=== PATIENT | male | born 1980 | race Caucasian/White ===

== ENCOUNTER → 2019-06-02 13:03 | Outpatient (BNVA) | payer OTHER, SELFPAY | PROVIDERS: Visit Provider Nurse Practitioner Family | DX: J10.1 Influenza due to other identified influenza virus with other respiratory manifestations (principal); R50.9 Fever, unspecified; J01.40 Acute pansinusitis, unspecified | CPT/HCPCS: 87804 ==

== ENCOUNTER 2021-03-12 19:23 | Observation (INO) | payer OTHER, SELFPAY ==
--- NOTE | 2021-03-12 19:30 | XRR_ITS ---
PROCEDURE INFORMATION: Exam: XR Chest Exam date and time: 03/12/2021 7:30 PM Age: 41 years old Clinical indication: Chest wall pain; Additional info: Cp TECHNIQUE: Imaging protocol: XR of the chest. Views: 1 view. COMPARISON: No relevant prior studies available. FINDINGS: Lungs: Unremarkable. No consolidation. Pleural spaces: Unremarkable. No pleural effusion. No pneumothorax. Heart/Mediastinum: Unremarkable. No cardiomegaly. Bones/joints: Unremarkable. XR/XR chest 1V portable [id number] IMPRESSION: No acute findings. Radiation Dose CTDIVOL = (mGy): DLP = (mGy-cm)
--- NOTE | 2021-03-12 19:30 | ECG_ITS ---
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 Measurements Intervals [place] Rate: 130 P: IA: QRS: 47 QRSD: 94 T: 43 QT: 311 QTc: 458 Interpretive Statements ATRIAL FIBRILLATION WITH RAPID VENTRICULAR RESPONSE MODERATE ST DEPRESSION [0.05+ mV ST DEPRESSION] No previous ECG available for comparison Electronically Signed On 03-13-2021 9:59:17 SYRUP MIXER by Day Paez M.D. [id number]
[2021-03-12 19:33] VITALS: BP 135/103; PULSE 121; RESP 18; TEMP 37.1; O2SAT 98; BMI 40.2
--- NOTE | 2021-03-12 20:10 | ED_ITS ---
HPI - Chest Pain General: Chief Complaint: Chest Pain Stated Complaint: Chest Pain\Arm Numb Time Seen by Provider: 03/12/21 19:58 Source: patient Mode of arrival: ambulatory Limitations: no limitations History of Present Illness: HPI narrative: 41-year-old male states that roughly 1 hour ago he started having some palpitations in the center of his chest. He states that he had been on a pulse ox at home his heart rate was running in the 140s. Here he is in A. fib with RVR running in the 130s to 140s he denies any history of A. fib. He denies any chest pain. He states he was on a very recent long flight across the country a week ago. Denies any history of blood clots denies any worsening improving factors. Associated symptoms: Reports palpitations; Deny abdominal pain, dyspnea, fever(s), nausea or vomiting Review of Systems Const: Denies: fever(s), chills, body aches or change in appetite Eyes: Denies: blurry vision or eye discomfort ENMT: Denies: throat pain or dental pain Card: Reports: palpitations Resp: Denies: dyspnea GI: Denies: abdominal pain, nausea, vomiting or diarrhea : Denies: dysuria Musc: Denies: neck pain or back pain Skin/Breast: Denies: rash Neuro: Denies: headache(s) Psych: Denies: depression Santana/Lymph: Denies: easy bruising All/Imm: Denies: urticaria Physical Exam Const: COMMON NORMALS: no acute distress, patient oriented x3 and healthy appearing HENMT: COMMON NORMALS: normocephalic and atraumatic HEAD & SCALP: normocephalic and atraumatic Eye: COMMON NORMALS: Equal, round and reactive pupils present and EOMs intact bilaterally PUPIL: Yes Equal, round and reactive pupils present Neck/C-Spine: COMMON NORMALS: full ROM and supple Chest: COMMONS NORMALS: normal inspection of the chest and normal palpation of entire chest wall Resp: COMMON NORMALS: normal respiratory effort, No retractions, No use of accessory muscles and clear to auscultation bilaterally AUSCULTATION: clear to auscultation bilaterally Cardio: COMMON NORMALS: No murmurs present (Cardio) RATE: tachycardic RHYTHM: abnormal rhythm irregularly irregular GI: COMMON NORMALS: Normal to inspection, nondistended, normoactive bowel sounds present, Soft to palpation, non-tender and no masses PALPATION: Yes Soft to palpation Extremity: COMMON NORMALS: normal to inspection and full ROM Neuro: COMMON NORMALS: patient oriented x3, moves all extremities and no focal motor deficits Psych: COMMON NORMALS: mental status grossly normal, Normal thought process present and cooperative THOUGHT PROCESS: Normal thought process present Skin: COMMON NORMALS: no rashes or lesions noted and no wounds GENERAL SKIN EXAM: no rashes or lesions noted Course Vital Signs: Vital signs: Vital Signs Temperature 98.7 F 03/12/21 19:33 Pulse Rate 113 H 03/12/21 20:20 Respiratory Rate 16 03/12/21 20:20 Blood Pressure 128/82 03/12/21 20:20 Pulse Oximetry 97 03/12/21 20:20 MDM - Chest Pain MDM Narrative: Medical decision making narrative: Patient presents with new onset A. fib with RVR no history of A. fib in the past patient's initial troponin here is negative D-dimer is negative as well with no signs of pulmonary embolism I spoke to the hospitalist patient started on a Cardizem drip will admit to the cardiac stepdown unit. Lab Data: Labs: Lab Results 03/12/21 03/12/21 03/12/21 20:03 20:03 20:03 WBC 5.8 10^3/uL 10^3/ uL (4.0-10.0) RBC 5.22 10^6/uL 10^6 /uL (4.1-5.3) Hgb 16.1 g/dL g/dL (11.7-16.6) Hct 45.5 % % (42.0-52.0) MCV 87.2 fl fl (80-94) MCH 30.8 pg pg (28.0-34.0) MCHC 35.4 g/dL g/dL (30.0-36.0) RDW 11.6 % L % (12.1-15.1) Plt Count 232 10^3/cmm 10^3 /cmm (130-400) MPV 10.4 fL fL (7.4-10.4) Neut % (Auto) 58.5 % % Lymph % (Auto) 29.8 % % Johnston % (Auto) 8.3 % % Eos % (Auto) 2.6 % % Baso % (Auto) 0.5 % % Neut # (Auto) 3.40 10^3/uL 10^3 /uL (1.8-7.7) Lymph # (Auto) 1.7 10^3/uL 10^3/ uL (0.8-4.8) Johnston # (Auto) 0.5 10^3/uL 10^3/ uL (0.2-0.9) Eos # (Auto) 0.2 10^3/uL 10^3/ uL (0.0-0.8) Baso # (Auto) 0.0 10^3/uL 10^3/ uL (0.0-0.1) Nucleated RBC % (a uto) 0 % % Nucleated RBCs # 0.0 /100WBC /100W BC D-Dimer Sodium 146 mmol/L H mmol /L (136-145) Potassium 3.6 mmol/L mmol/L (3.5-5.1) Chloride 111 mmol/L H mmol /L (98-107) Carbon Dioxide 25 mmol/L mmol/L (22-29) Anion Gap 13.6 (5-19) BUN 9 mg/dL mg/dL (6-20) Creatinine 0.6 mg/dL L mg/dL (0.7-1.2) GFR Calculation 147.8 mL/min H mL /min (90-130) Glucose 120 mg/dL H mg/dL (65-115) Calculated Osmolal ity 302 mOsm/kg H mOs m/kg (285-295) Calcium 9.5 mg/dL mg/dL (8.5-10.5) Total Bilirubin 0.3 mg/dL mg/dL (0.15-1.2) AST 32 U/L U/L (0-40) ALT 41 U/L U/L (0-41) Alkaline Phosphata se 86 IU/L IU/L (40-130) Troponin T Baselin e 7 ng/L ng/L (0-15) Total Protein 6.7 g/dL g/dL (6.6-8.7) Albumin 4.4 g/dL g/dL (3.5-5.2) Globulin 2.3 g/dL g/dL (1.3-4.6) 03/12/21 20:03 WBC RBC Hgb Hct MCV MCH MCHC RDW Plt Count MPV Neut % (Auto) Lymph % (Auto) Johnston % (Auto) Eos % (Auto) Baso % (Auto) Neut # (Auto) Lymph # (Auto) Johnston # (Auto) Eos # (Auto) Baso # (Auto) Nucleated RBC % (a uto) Nucleated RBCs # D-Dimer <= 0.27 ug/mIFEU ug/mIFEU (0-0.59) Sodium Potassium Chloride Carbon Dioxide Anion Gap BUN Creatinine GFR Calculation Glucose Calculated Osmolal ity Calcium Total Bilirubin AST ALT Alkaline Phosphata se Troponin T Baselin e Total Protein Albumin Globulin Imaging Data^: CXR: Attestation: I personally reviewed and interpreted this imaging study as follows : My impression: no acute abnormality EKG Data^: EKG 1: Attestation: I personally reviewed and interpreted this EKG as follows: EKG interpretation date: 03/12/21 EKG interpretation time: 19:32 Interpretation: afib with rvr hr [address] or t wave abnormalities qrs 94 qtc 388 Coding Level of Care Code ED [employer] Safety Program Coordinator for Chg Fwd Exam Comprehensive
[2021-03-12 20:16] LABS: Basophils % 0.5 %; Eosinophils # 0.2 10^3/uL (0.0-0.8); Eosinophils % 2.6 %; Hematocrit 45.5 % (42.0-52.0); Hemoglobin 16.1 g/dL (11.7-16.6); Lymphocytes # 1.7 10^3/uL (0.8-4.8); Lymphocytes % 29.8 %; Mean Corpuscular HGB Conc 35.4 g/dL (30.0-36.0); Mean Corpuscular Hemoglobin 30.8 pg (28.0-34.0); Mean Corpuscular Volume 87.2 fl (80-94); Mean Platelet Volume 10.4 fL (7.4-10.4); Monocytes # 0.5 10^3/uL (0.2-0.9); Monocytes % 8.3 %; Neutrophils % 58.5 %; Nucleated Red Blood Cells % 0 %; Platelet Count 232 10^3/cmm (130-400); Red Blood Count 5.22 10^6/uL (4.1-5.3); Red Cell Distribution Width 11.6 % (12.1-15.1); White Blood Count 5.8 10^3/uL (4.0-10.0)
[2021-03-12] MEDS: sodium chloride 0.9% 1,000 ML 999 ML IV (20:16)
[2021-03-12 20:20] VITALS: BP 128/82; PULSE 113; RESP 16; O2SAT 97
[2021-03-12 20:30] LABS: D Dimer <= 0.27 ug/mIFEU (0-0.59)
[2021-03-12 20:32] LABS: Anion Gap 13.6 (5-19); Blood Urea Nitrogen 9 mg/dL (6-20); Carbon Dioxide 25 mmol/L (22-29); Chloride 111 mmol/L (98-107); Potassium 3.6 mmol/L (3.5-5.1); Sodium 146 mmol/L (136-145)
[2021-03-12 20:33] LABS: Alanine Aminotransferase 41 U/L (0-41); Albumin Level 4.4 g/dL (3.5-5.2); Alkaline Phosphatase 86 IU/L (40-130); Aspartate Amino Transferase 32 U/L (0-40); Calcium 9.5 mg/dL (8.5-10.5); Globulin 2.3 g/dL (1.3-4.6); Glomerular Filtration Rate 147.8 mL/min (90-130); Glucose 120 mg/dL (65-115); Osmolality Calculated 302 mOsm/kg (285-295); Total Bilirubin 0.3 mg/dL (0.15-1.2); Total Protein 6.7 g/dL (6.6-8.7); Troponin(5th) Baseline 7 ng/L (0-15)
[2021-03-12 20:35] LABS: Creatinine Clr Calc Pharmacy 164.8669
[2021-03-12] MEDS: aspirin 81 mg Chew Tablet 324 MG PO (20:35)
[2021-03-12 21:50] VITALS: BP 114/96; PULSE 100; RESP 20; O2SAT 97
[2021-03-12 21:53] LABS: Add Urine Microscopic? NO; Charge for UA Resulting for Rev
[2021-03-12 22:00] LABS: Bilirubin Urine Neg (Negative); Blood Urine Neg (Negative); Glucose Urine UA Norm (Normal); Ketones Urine Negative (Negative); Leukocyte Esterase Urine Negative (Negative); Nitrate Urine Negative (Negative); Protein Urine Neg (Negative); Urine Appearance Clear (CLEAR); Urine Color Colorless (Yellow); Urobilinogen Urine Norm (Negative); pH Urine 7 (5-7)
[2021-03-12 22:31] LABS: Troponin 5 2HR 11.85 ng/L (0-15); Troponin 5 2HR Delta 4.85 ABS# (0-10)
[2021-03-13 00:02] VITALS: BP 114/96; PULSE 65; RESP 17; O2SAT 96
--- NOTE | 2021-03-13 01:30 | ECG_ITS ---
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 Measurements Intervals [place] Rate: 82 P: MI: QRS: 56 QRSD: 94 T: 61 QT: 382 QTc: 449 Interpretive Statements ATRIAL FIBRILLATION ABNORMAL RHYTHM ECG Compared to ECG 03/12/2021 19:32:02 ST (T wave) deviation no longer present Electronically Signed On 03-13-2021 23:52:41 PATIENT'S LIBRARIAN by Codie Hanna M.D. [id number]
--- NOTE | 2021-03-13 01:47 | CTR_ITS ---
PROCEDURE INFORMATION: Exam: CTA Chest With Contrast Exam date and time: 03/13/2021 1:47 AM Age: 41 years old Clinical indication: Patient HX: New onset of afib with rvr. Chest pain. Recent extended transatlantic flight. ; Additional info: Evalute for pe, recent transatlantic flight, new onset a fib, evaluate for TECHNIQUE: Imaging protocol: Computed tomographic angiography of the chest with contrast. 3D rendering (Not supervised by radiologist): MIP and/or 3D reconstructed images were created by the technologist. Radiation optimization: All CT scans at this facility use at least one of these dose optimization techniques: automated exposure control; mA and/or kV adjustment per patient size (includes targeted exams where dose is matched to clinical indication); or iterative reconstruction. Contrast material: OMNI 350; Contrast volume: 62 ml; Contrast route: INTRAVENOUS (IV); COMPARISON: CR (CHEST, ) 03/12/2021 8:51 PM RADIATION DOSE METRICS: Total DLP (mGy-cm): 545.83 FINDINGS: Pulmonary arteries: No pulmonary embolism. Aorta: Unremarkable. No aortic aneurysm. No aortic dissection. Lungs: Unremarkable. No consolidation. No masses. Pleural spaces: Unremarkable. No pneumothorax. No pleural effusion. Heart: Unremarkable. No cardiomegaly. No pericardial effusion. Lymph nodes: Unremarkable. No enlarged lymph nodes. Bones/joints: Unremarkable. No acute fracture. Soft tissues: Unremarkable. CT/CT angio chest PE protcl [id number] IMPRESSION: 1. No cause for acute pain is identified. 2. No pulmonary embolism. Radiation Dose CTDIVOL = (mGy): DLP = 545.83 (mGy-cm)
--- NOTE | 2021-03-13 01:47 | USCV_ITS ---
Yung Pascual Age: 41 Gender: M : 1980 Exam Date: 03/13/2021 08:13 Ordering Phys: Erika Field MD Technologist: Exam Location: [facility] [place] Indication: Tachycardia, atrial fibrillation BP: 130 / 80 HR: 94 Rhythm: Sinus Technical Quality: Adequate MEASUREMENTS (Male / Female) Normal Values 2D ECHO LV Diastolic Diameter PLAX 3.4 cm 4.2 - 5.9 / 3.9 - 5.3 cm LV Systolic Diameter PLAX 2.0 cm IVS Diastolic Thickness 1.1 cm 0.6 - 1.0 / 0.6 - 0.9 cm IVS Systolic Thickness 1.7 cm LVPW Diastolic Thickness 1.2 cm 0.6 - 1.0 / 0.6 - 0.9 cm LVPW Systolic Thickness 1.5 cm LVOT Diameter 2.0 cm LV Ejection Fraction 2D Teich 72.9 % LV Ejection Fraction MOD 2C 43.3 % LV Ejection Fraction 2C AL 43.0 % LA Diameter 3.5 cm LA Width 4.0 cm LA Height 4.6 cm RA Width 3.1 cm RA Height 4.6 cm M-MODE LV Diastolic Diameter MM 5.3 cm 4.2 - 5.9 / 3.9 - 5.3 cm LV Systolic Diameter MM 3.6 cm LV Ejection Fraction MM Teich 59.4 % IVS Diastolic Thickness MM 1.2 cm 0.6 - 1.0 / 0.6 - 0.9 cm IVS Systolic Thickness MM 1.9 cm LVPW Diastolic Thickness MM 1.3 cm 0.6 - 1.0 / 0.6 - 0.9 cm LVPW Systolic Thickness MM 1.9 cm RV Diastolic Diameter MM 1.0 cm Aortic Annulus Diameter 4.0 cm LA Ao Ratio MM 0.9 MV E Point Septal Separation 1.1 cm DOPPLER AV Peak Velocity 129.0 cm/s LVOT Peak Velocity 78.0 cm/s AV Area Cont Eq vti 1.9 cm squared AV Area Cont Eq pk 2.0 cm squared MV Area PHT 5.0 cm squared Mitral E to A Ratio 1.1 MV E' Velocity 52.5 cm/s Mitral E to MV E' Ratio 7.7 Mitral E to LV E' Lateral Ratio 7.2 Mitral E to LV E' Septal Ratio 8.4 TR Peak Velocity 165.8 cm/s TR Peak Gradient 11.0 mmHg FINDINGS Left Ventricle Normal left ventricular size, systolic function and wall thickness, with no regional wall motion abnormalities. Left ventricular ejection fraction is estimated at 60-65 %. Normal diastolic function. Right Ventricle Normal right ventricular size and systolic function. Right ventricular systolic pressure 16 mmHg. Right Atrium Normal right atrial size. Right atrial pressure estimated at 3 mmHg. Left Atrium Normal left atrial size. Mitral Valve Structurally normal mitral valve. No mitral valve stenosis. No mitral valve regurgitation. Aortic Valve Structurally normal trileaflet aortic valve. No aortic valve stenosis. No aortic valve regurgitation. Tricuspid Valve Tricuspid valve not well visualized. Trace tricuspid valve regurgitation. Pulmonic Valve Pulmonic valve not well visualized. No pulmonary valve stenosis. No pulmonary valve regurgitation. Pericardium No pericardial effusion. Aorta Normal-sized inferior vena cava. Normal-sized aortic root. CONCLUSIONS 1. Normal left ventricular size, systolic function and wall thickness, with no regional wall motion abnormalities. Left ventricular ejection fraction is estimated at 60-65 %. Normal diastolic function. 2. Normal right ventricular size and systolic function. 3. No significant valvular abnormality. 4. Normal pulmonary artery pressure. 5. No prior similar studies to compare. Day Paez MD (Electronically Signed) Final Date: 13 March 2021 12:33 S
[2021-03-13 02:03] VITALS: BP 129/75; PULSE 59; RESP 16; O2SAT 97
[2021-03-13] MEDS: enoxaparin 40 mg/0.4 mL Syringe SUBCUT (02:08)
[2021-03-13] MEDS: dilTIAZem 30 mg Tablet PO ×4 (02:20→19:40)
[2021-03-13] MEDS: iohexol 350 mg/mL 100 mL Btl IV (02:36)
--- NOTE | 2021-03-13 02:57 | PM.HP ---
Providers/Chief Complaint Admitting Physician: Erika Field MD Chief Complaint: Chest Pain\Arm Numb History of Present Illness Yung Pascual is a 41 year old male without reported significant past medical history who presented to the emergency room with chief complaints of chest palpitations that started at 6 PM this evening. Patient was reportedly at rest and had just eaten lots of candy following which he started experiencing chest flutter/palpitations. He has experienced similar flutter in the past, however episodes have been self resolving. When the sensation did not resolve he presented to the emergency room. States that while on transit to the ER he was pretty anxious and felt short of breath in this context. He has been saturating 97% on room air since arrival. No past history of A. fib or a flutter noted. In the ER patient noted to have A. fib with RVR with heart rate 140 to 150 bpm. He denies any lower extremity swelling. Patient has a history of recent international travel, travel back from [place], [facility] 48 hours ago. Transatlantic flight lasting greater than 10 hours. No past history of DVT or PE. D-dimer screen today is negative. He was tested for pretravel Covid PCR on Thursday and was negative for the same. Denies any complaints of cough, chest pain, dyspnea, palpitations. No recent viral URI type illness. No known thyroid issues. His diastolic blood pressure reportedly runs greater than 90. He is not currently on any medications for any reason. No recent history of binge alcohol drinking. Drinks socially 1-2 drinks per day, last drink was on . No history of IV recreational drug use. No past history of valvular abnormalities or rheumatic fever. He has been started on a Cardizem infusion at this time, at the time of my assessment patient continues to be in A. fib but now controlled on 10 mg/h drip between 70 to 80 bpm. No fever. He is currently vaccinated for COVID-19 with 2 doses mRNA vaccine series and had his booster approximately 1-1/2 months ago. Chest x-ray today does not show any infiltrates. Review of Systems General: Reports: 10 or more systems reviewed and unremarkable except in HPI and below Const: Denies: fever(s), chills or body aches Eyes: Denies: change in vision, blurry vision or photophobia ENMT: Reports: hoarseness; Denies: throat pain, enlarged tonsils, odynophagia or nasal congestion Card: Denies: chest pain, palpitations, irregular heart rhythm, edema, swelling of feet/ankles, lightheadedness, pre-syncope, dyspnea on exertion or orthopnea Resp: Denies: dyspnea, productive cough, non-productive cough, wheezing, stridor, pain on inspiration, change in phlegm color, hemoptysis or chest congestion GI: Denies: abdominal pain, nausea, vomiting, hematemesis, coffee ground emesis, dysphagia, heartburn, diarrhea, constipation, GI cramping, change in stool character, hematochezia or melena : Denies: flank pain, dysuria, urinary frequency, urinary urgency, urinary hesitancy or hematuria Musc: Denies: neck pain, back pain, extremity pain, joint swelling, joint warmth or deformity Neuro: Denies: headache(s), numbness in extremities, weakness in extremities, sensory changes, difficulty walking, frequent falls, dizziness, vertigo, behavioral changes, Slurred speech present or seizure-like activity Psych: Denies: anxiety, depression, suicidal ideation or homicidal ideation Endo: Denies: polyuria, polydipsia, tired all the time, cold intolerance or hot flashes Santana/Lymph: Denies: easy bruising or easy bleeding Medications/Allergies Allergies Allergy/AdvReac Type Severity Reaction Status Date / Time No Known Allergies Allergy Verified 06/02/19 13:01 Vitals/I&O/Wt Last Vital Signs Temp 98.7 F 03/12/21 19:33 Pulse 59 L 03/13/21 02:03 Resp 16 03/13/21 02:03 BP 129/75 03/13/21 02:03 Pulse Ox 97 03/13/21 02:03 03/12/21 03/12/21 03/13/21 14:59 22:59 06:59 Intake Total 43.125 / 43.125 Balance 43.125 / 43.125 Weight last 48 hrs Weight 99.79 kg Physical Exam Narrative: EXAM NARRATIVE: General: No acute distress, AO x3 HEENT: PERRLA, pupils bilaterally equal and reactive, pallors not present Chest: Normal vesicular breath sounds, no added sounds, equal good air entry bilaterally CVS: S1-S2 irregular, no murmurs, no tachycardia, no gallops, no rubs Abdomen: Soft, nontender, no organomegaly, bowel sounds present Neuro: No focal deficits, no facial deformity, AO x3, power 5/5 in all limbs Extremities: No edema clubbing or cyanosis Data : 03/12/21 20:03 03/12/21 20:03 A&P Assessment and plan (1) New onset a-fib: new onset A fib with RVR currently on cardizem infusion @ 10mg/hr Start overlap with po cardizem 30mg po q6h check TSH, urine drug screen, echocardiogram and magnesium Potassium within range no reported h/o HTN Pogvb2Brof score zero, hold off on anticoagulation Cta chest to evaluate for PE given recent long transatlantic flight lasting >10 hrs which is a potential risk factor for PE Status: Acute Attestations Medical Necessity Statement*: anticipate >2midnight admission for evaluation and management of new onset A fib Coding Level of Care Code Acute Switchboard Operator Helper for David Fwginny Diagnoses New onset a-fib I48.91
[2021-03-13 03:40] LABS: Troponin 5 6HR 10.85 ng/L (0-15); Troponin 5 6HR Delta 3.85 ng/L (0-12)
[2021-03-13 04:03] LABS: Amphetamines Screen Urine Negative (Negative); Barbiturates Screen Urine Negative (Negative); Benzodiazepines Screen Urine Negative (Negative); Cocaine Screen Urine Negative (Negative); Opiate Screen Urine Negative (Negative); PCP Screen Urine Negative (Negative); THC Screen Urine Negative (Negative)
[2021-03-13 04:05] LABS: Magnesium 2.1 mg/dL (1.7-2.3); Thyroid Stimulating Hormone 2.99 uIU/mL (0.27-4.20)
[2021-03-13 04:33] VITALS: BP 129/100; PULSE 87; RESP 19; O2SAT 95
[2021-03-13] MEDS: pantoprazole DR 40 mg Tablet PO (08:57)
--- NOTE | 2021-03-13 09:51 | USCV_ITS ---
Yung Pascual Age: 41 Gender: M : 1980 Exam Date: 03/13/2021 10:04 Ordering Phys: Brett Torres MD Technologist: Wolf Sheppard [place] [facility] [place]: EVAL FOR DVT HISTORY: Lower extremity swelling. PROCEDURES: Venous duplex imaging was performed in bilateral lower extremities. Venous duplex imaging was performed in only the left lower extremity. In addition, the posterior tibial and peroneal trunk were evaluated. Serial compression, augmentation maneuvers, and spectral Doppler flow evaluation were performed. FINDINGS: No evidence of DVT seen in any vessel visualized at this time. CONCLUSIONS No evidence of right lower extremity DVT. No evidence of left lower extremity DVT. Mark Patino MD (Electronically Signed) Final Date: 13 March 2021 16:09 S
[2021-03-13 14:30] VITALS: BP 136/101; PULSE 78; RESP 18; O2SAT 96
--- NOTE | 2021-03-13 16:02 | PM.CONSULT ---
Providers/Reason For Consult Consulting Physician/Specialty*: Dr. Paez, cardiology Reason for Consult*: New onset atrial fibrillation Attending Physician: Brett Torres MD History of Present Illness History of Present Illness Yung Pascual is a 41 year old male with no prior medical history not on any medications presented with sudden onset tachycardia and heart fluttering. He recently went for a week visit to [place] and traveled last Thursday (20 hr flight with layovers) and arrived back here on Thursday. He was feeling okay after arrival apart from being jet lagged and tired. Yesterday around 6- 6:30 PM, he felt his heart racing and heart rhythm not being right when he checked his pulse. He presented to the ER for further evaluation. He was found to be in A. fib with RVR with heart rate in 130's and BP 135/103 mm Hg. normal hemoglobin and electrolytes. Normal TSH. He was started on Cardizem drip and since then has been weaned off the Cardizem p.o. CTA chest showed no PE. Venous duplex with no DVT. Echocardiogram was done that showed normal LV function and normal left atrial size. I have been asked to assist in further management as with ambulation patient heart rate increases in 100s. Patient denies any excessive caffeine intake. Occasional episodes of fluttering in the past with caffeine intake. No sustained episodes. 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 He was tested for Covid prior to his travel. He denies any personal or family cardiac history. Review of Systems Const: Denies: fever(s), chills, change in appetite, change in weight, fatigue or malaise Eyes: Denies: change in vision or eye discharge ENMT: Denies: throat pain, swelling of lips/tongue, bleeding gums, nasal congestion or post nasal drip Card: Reports: palpitations and irregular heart rhythm; Denies: chest pain, edema, lightheadedness, syncope, dyspnea on exertion, orthopnea or leg pain with exertion Resp: Denies: dyspnea, productive cough, wheezing or hemoptysis GI: Denies: abdominal pain, nausea, vomiting, hematemesis, heartburn, diarrhea, constipation, change in bowel habits, hematochezia or melena : Denies: dysuria or hematuria Musc: Denies: back pain, extremity swelling, joint pain or muscle weakness Skin/Breast: Denies: rash, erythema, new lesions or change in hair Neuro: Denies: numbness in extremities, weakness in extremities, lack of coordination, dizziness, vertigo or confusion Psych: Denies: anxiety, depression or irritability Endo: Denies: tired all the time, cold intolerance or heat intolerance Santana/Lymph: Denies: easy bruising, easy bleeding, petechiae or purpura All/Imm: Denies: throat swelling or acute wheezing Meds/Allergies Home Medications and Allergies Home Medications Medication Instructions Recorded Confirmed Last Taken Type No Known Home Medications 03/13/21 03/13/21 Unknown History Allergies Allergy/AdvReac Type Severity Reaction Status Date / Time No Known Allergies Allergy Verified 06/02/19 13:01 Current Medications Current Medications Generic Name Dose Route Start Last Admin Trade Name Freq PRN Reason Stop Dose Admin Enoxaparin Sodium 40 mg 03/13/21 02:00 03/13/21 02:08 Enoxaparin 40 Mg/0.4 Ml Syringe SUBCUT 40 mg Q24H JESSE Administration Diltiazem HCl 125 mg/ Sodium 125 mls @ 10 mls/hr 03/12/21 21:00 03/13/21 10:33 Chloride IV Not Given .[id number] JESSE 10 MG/HR Pantoprazole Sodium 40 mg 03/13/21 09:00 03/13/21 08:[address] 40 Mg Tablet PO 40 mg DAILY JESSE Administration Vitals/I&O/Wt Last Vital Signs Temp 98.7 F 03/12/21 19:33 Pulse 78 03/13/21 14:30 Resp 18 03/13/21 14:30 BP 136/101 03/13/21 14:30 Pulse Ox 96 03/13/21 14:30 03/13/21 03/13/21 03/13/21 06:59 14:59 22:59 Intake Total 43.125 / 43.125 Output Total 600 / 600 Balance -556.875 / -556.875 Weight last 48 hrs Weight 220 lb Physical Exam Narrative: EXAM NARRATIVE: GENERAL: Obese man lying in bed in no acute distress HEENT: Pupils equal round reactive to light. No pallor or icterus. NECK: No JVD, No carotid bruit. CARDIOVASCULAR SYSTEM: S1-S2 regular. No murmur rubs or gallops. RESPIRATORY SYSTEM: Chest clear to auscultation. No wheezes rhonchi or rubs heard. No use of accessory muscles. ABDOMEN: Soft, nontender and nondistended. Normal bowel sounds present. EXTREMITIES: No cyanosis or clubbing. No edema. No signs of chronic venous insufficiency. PARLOR MAID: Patient is alert oriented ?3. No focal neurological deficits. A&P Assessment and plan (1) New onset a-fib: New onset (<48 hr ) of onset. -Option of cardioversion/rate control with Cardizem discussed with patient in detail. -Patient is reluctant to undergo electrical cardioversion and opted for chemical cardioversion. -start on Fleacinide 100 mg BID with ASA 325 mg daily ([id number]=4/9). -Depending on clinical progress may consider pill in pocket strategy. -Intermittent snoring but no other symptoms of sleep apnea. May consider overnight pulse oximetry. -follow up with me in [facility] in 1 week -EKG in 1 week. Patient was advised to keep a track of blood pressure and heart rate 2-3 times a day till his follow-up appointment. -Advised to take Cardizem 30 mg 3 times daily along with flecainide. Thank you for allowing me to participate in patient's care. Please feel free to call with questions or concerns. Status: Acute (2) Obesity: Status: Acute Qualifiers: Obesity classification: adult class 3 (BMI >= 40) Body mass index: BMI 40.0-44.9 Consult Attestations Time Spent in Patient Care: 16 - 35 minutes (>than 50% of time spent in counselling and/or direct pt care on unit). Coding Level of Care Code Acute Coremaker for Chg Fwd Diagnoses New onset a-fib I48.91 Obesity E66.9 Obesity classification: adult class 3 (BMI >= 40) Body mass index: BMI 40.0-44.9
--- NOTE | 2021-03-13 17:52 | PM.DCS ---
Discharge Providers Date of Admission: 03/13/21 12:57 Date of Discharge: March 13, 2021 Attending Provider at Admission: Erika Field MD Attending Provider at Discharge: Brett Torres MD Diagnoses at Discharge Discharge Diagnosis (1) New onset a-fib: Status: Acute (2) Obesity: Status: Acute Qualifiers: Obesity classification: adult class 3 (BMI >= 40) Body mass index: BMI 40.0-44.9 Reason for Visit Reason for Visit: Chest Pain\Arm Numb Hospital Course Hospital Course This is a 41-year-old male with no significant past medical history who presents to [facility] due to chest palpitations or shortness of breath Patient was admitted to [facility] for A. fib with RVR, treated with Cardizem drip, cardiology was consulted, managed with Cardizem and flecainide and aspirin 325. Kayode Vasc score was 0. TSH within normal limits, mag within normal limits, bilateral extremity ultrasound negative for DVT, CTA negative for pulmonary embolism, echocardiogram showed normal EF with no significant wall motion abnormalities, U tox negative. Patient was discharged home with Cardizem 30 mg 3 times daily, flecainide 100 twice daily, aspirin 325, with a follow-up with cardiology as outpatient Physical Exam Const: COMMON NORMALS: no acute distress and patient oriented x3 Resp: COMMON NORMALS: normal respiratory effort, No retractions, No use of accessory muscles and clear to auscultation bilaterally AUSCULTATION: clear to auscultation bilaterally Cardio: COMMON NORMALS: regular rate, S1 normal heart sound present and S2 normal heart sound present RATE: regular rate and tachycardic RHYTHM: abnormal rhythm HEART SOUNDS: S1 normal heart sound present and S2 normal heart sound present GI: COMMON NORMALS: Normal to inspection, nondistended, normoactive bowel sounds present, Soft to palpation and non-tender PALPATION: Yes Soft to palpation Extremity: COMMON NORMALS: no pedal edema Neuro: COMMON NORMALS: patient oriented x3 Psych: COMMON NORMALS: mental status grossly normal Discharge Data Data Completed and Pending: Completed Studies During Hospitalization Category Date Time Status CT angio chest PE protcl [id number] Rout ine Cat Scan 03/13/21 01:47 Completed XR chest 1V mahi ble [id number] Stat Exams 03/12/21 19:30 [place] [id number] Urgent Ultrasound 03/13/21 09:51 Completed CV. echo complete * [id number] Routine Ultrasound 03/13/21 01:47 Completed Labs from last 24 hours 03/13/21 03/13/21 03/12/21 03:09 03:09 22:04 WBC RBC Hgb Hct MCV MCH MCHC RDW Plt Count MPV Neut % (Auto) Lymph % (Auto) Cook % (Auto) Eos % (Auto) Baso % (Auto) Neut # (Auto) Lymph # (Auto) Cook # (Auto) Eos # (Auto) Baso # (Auto) Nucleated RBC % (a uto) Nucleated RBCs # D-Dimer Sodium Potassium Chloride Carbon Dioxide Anion Gap BUN Creatinine GFR Calculation Glucose Calculated Osmolal ity Calcium Magnesium 2.1 Total Bilirubin AST ALT Alkaline Phosphata se Troponin T Baselin e Troponin T 120 Min [place] 11.85 Delta Troponin T 4.85 Troponin T Hi Sens 6Hr 10.85 Troponin T Hi Sens 6Hr Delta 3.85 Total Protein Albumin Globulin TSH 2.99 Urine Color Urine Appearance Urine pH Ur Specific Gravit y Urine Protein Urine Glucose (UA) Urine Ketones Urine Blood Urine Nitrate Urine Bilirubin Urine Urobilinogen Ur Leukocyte Jessica ase Urine Opiates Scre en Ur Barbiturates Sc reen Ur Phencyclidine S crn Ur Amphetamines Sc reen U Benzodiazepines Scrn Urine Cocaine Scre en U Marijuana (THC) Screen 03/12/21 03/12/21 03/12/21 20:03 20:03 20:03 WBC RBC Hgb Hct MCV MCH MCHC RDW Plt Count MPV Neut % (Auto) Lymph % (Auto) Cook % (Auto) Eos % (Auto) Baso % (Auto) Neut # (Auto) Lymph # (Auto) Cook # (Auto) Eos # (Auto) Baso # (Auto) Nucleated RBC % (a uto) Nucleated RBCs # D-Dimer <= 0.27 Sodium 146 H Potassium 3.6 Chloride 111 H Carbon Dioxide 25 Anion Gap 13.6 BUN 9 Creatinine 0.6 L GFR Calculation 147.8 H Glucose 120 H Calculated Osmolal ity 302 H Calcium 9.5 Magnesium Total Bilirubin 0.3 AST 32 ALT 41 Alkaline Phosphata se 86 Troponin T Baselin e 7 Troponin T 120 Min [place] Troponin T Troponin T Hi Sens 6Hr Troponin T Hi Sens 6Hr Delta Total Protein 6.7 Albumin 4.4 Globulin 2.3 TSH Urine Color Urine Appearance Urine pH Ur Specific Gravit y Urine Protein Urine Glucose (UA) Urine Ketones Urine Blood Urine Nitrate Urine Bilirubin Urine Urobilinogen Ur Leukocyte Jessica ase Urine Opiates Scre en Ur Barbiturates Sc reen Ur Phencyclidine S crn Ur Amphetamines Sc reen U Benzodiazepines Scrn Urine Cocaine Scre en U Marijuana (THC) Screen 03/12/21 03/12/21 03/12/21 20:03 19:45 19:45 WBC 5.8 RBC 5.22 Hgb 16.1 Hct 45.5 MCV 87.2 MCH 30.8 MCHC 35.4 RDW 11.6 L Plt Count 232 MPV 10.4 Neut % (Auto) 58.5 Lymph % (Auto) 29.8 Cook % (Auto) 8.3 Eos % (Auto) 2.6 Baso % (Auto) 0.5 Neut # (Auto) 3.40 Lymph # (Auto) 1.7 Cook # (Auto) 0.5 Eos # (Auto) 0.2 Baso # (Auto) 0.0 Nucleated RBC % (a uto) 0 Nucleated RBCs # 0.0 D-Dimer Sodium Potassium Chloride Carbon Dioxide Anion Gap BUN Creatinine GFR Calculation Glucose Calculated Osmolal ity Calcium Magnesium Total Bilirubin AST ALT Alkaline Phosphata se Troponin T Baselin e Troponin T 120 Min [place] Troponin T Troponin T Hi Sens 6Hr Troponin T Hi Sens 6Hr Delta Total Protein Albumin Globulin TSH Urine Color Colorless Urine Appearance Clear Urine pH 7 Ur Specific Gravit y 1.000 L Urine Protein Neg Urine Glucose (UA) Norm Urine Ketones Negative Urine Blood Neg Urine Nitrate Negative Urine Bilirubin Neg Urine Urobilinogen Norm Ur Leukocyte Jessica ase Negative Urine Opiates Scre en Negative Ur Barbiturates Sc reen Negative Ur Phencyclidine S crn Negative Ur Amphetamines Sc reen Negative U Benzodiazepines Scrn Negative Urine Cocaine Scre en Negative U Marijuana (THC) Screen Negative Vitals: Last Vital Signs Temp 98.7 F 03/12/21 19:33 Pulse 78 03/13/21 14:30 Resp 18 03/13/21 14:30 BP 136/101 03/13/21 14:30 Pulse Ox 96 03/13/21 14:30 Discharge Plan Discharge Patient Disposition: Home Condition: Stable Prescriptions: New aspirin 325 mg Tablet,Delayed Release (Dr/Ec) 325 mg PO DAILY 30 Days Qty: 30 RF: 0 diltiazem HCl 30 mg Tablet 30 mg PO TID 30 Days Qty: 90 RF: 0 flecainide 100 mg Tablet 100 mg PO Q12H 30 Days Qty: 60 RF: 0 No Action No Known Home Medications RF: 0 Discharge Orders: Discharge Order (Routine); Ordered 03/13/21 Ordered By: Brett Torres Referrals: Day Paez MD [Physician] - 1 week Discharge Diet: Cardiac Discharge Activity: Resume usual activity Patient Instructions: Opioid Safety Activity Restrictions/Additional Instructions: -If you have chest pain or palpitations please go to the emergency room -Monitor heart rate -If you have worsening shortness of breath, or chest palpitations go to emergency room -Please avoid caffeinated beverages Discharge Attestations Time Spent in Discharge Care*: less than 30 min Quality Metrics Clinical Quality Measures During this hospital stay, did patient experience: None Coding Level of Care Code Acute Chg FW DC note Diagnoses New onset a-fib I48.91 Obesity E66.9 Obesity classification: adult class 3 (BMI >= 40) Body mass index: BMI 40.0-44.9
[2021-03-13] MEDS: flecainide 100 mg Tablet PO (18:10)
[2021-03-13] MEDS: aspirin 325 mg EC Tablet PO (18:10)
[2021-03-13 18:34] VITALS: BP 133/101; PULSE 103; RESP 22; O2SAT 95
[2021-03-14 00:16] VITALS: BP 137/101; PULSE 74; RESP 17; O2SAT 99
== END 2021-03-13 20:00 | disposition home or self-care (01) ==
LOC: ER 03-13 08:01 → CSU 03-13 17:51 → ER IP 03-15 06:33 → CSU 03-15 06:34
PROVIDERS: Student in an Organized Health Care Education/Training Program; Admitting Provider Family Medicine; Emergency Provider Emergency Medicine; Visit Provider Family Medicine
DX: I48.91 Unspecified atrial fibrillation (principal); E66.9 Obesity, unspecified; Z68.41 Body mass index [BMI] 40.0-44.9, adult; M79.89 Other specified soft tissue disorders
CPT/HCPCS: 71045; 71275; 80053; 80306; 81003; 83735; 84443; 84484; 85025; 85378; 93005; 93306; 93970; 96361; 96372; 96374; 99284; G0378; J1650; J3490; J7030; Q9967